=== PATIENT | female | born 1985 | race Caucasian/White ===

== ENCOUNTER 2019-11-27 17:12 | Observation (INO) ==
--- NOTE | 2019-11-27 17:31 | Emergency Department Note ---
ED Provider Note NAME: SILVA MOORE AGE: 34 SEX: F ARRIVES VIA: Walk-In INFORMANT: Patient, ED PROVIDER(S): Chaitanya Longoria DO CHIEF COMPLAINT: Patient presents the ER for epigastric abdominal pain which started yesterday morning. And now radiated to the right lower quadrant which has been constant and described as a cramping throbbing abdominal pain. She denies any nausea or vomiting. She does admit to crampy abdominal pain. Denies any dysuria, urgency or frequency. Last menstrual period was 3 weeks ago. She has had decreased oral intake as she notes it does upset her stomach slightly. No other exacerbating or remitting factors. Does have a previous history of C- section. She also has a past medical history of migraines. PMH migraines. Csection. IMPRESSION: Acute appendicitis MEDICAL DECISION MAKING: Patient is a 34-year-old female who presents the ER for periumbilical abdominal pain which started yesterday and radiated to her right lower quadrant. She was evaluated by her PCP and had a CT abdomen pelvis performed as an outpatient which showed questionable acute appendicitis and was referred in. Upon review of the CT report and [facility] system showed an appendix 9 to 10 mm and dilated but there is no significant surrounding stranding. On exam patient is acutely tender in the right lower quadrant. No previous abdominal surgeries. IV was established blood work was obtained showed no significant leukocytosis or anemia. BMP with mild hypokalemia. LFTs bilirubin lipase was unremarkable. UA was negative. was negative. Patient was given IV fluids while in the ER. Discussed with general surgery following my evaluation and they evaluated her at bedside and took her to the OR for appendectomy. Triage Nursing notes reviewed and agree them. Prior medical records reviewed Vital Signs: reviewed and remarkable for no significant abnormalities Differential diagnosis: Differential diagnoses includes but is not limited to gastritis, peptic ulcer disease, GERD, gallbladder disease, pancreatitis, small bowel obstruction, acute coronary syndrome, pericarditis, ischemic bowel, irritable bowel disease, irritable bowel syndrome, appendicitis, diverticulitis, malignancy, hernia, urinary tract infection, torsion, /ectopic (if female), perforation, trauma, infectious. ER treatment provided: See above Diagnostics interpreted by me: ECG: none Cardiac Monitoring: Sinus rhythm rate 80. Laboratory studies: See below Imaging studies: CT in [facility] system shows a dilated appendix 9 to 10 mm with no surrounding stranding suggesting acute appendicitis. Consultation(s): D/w Dr. Mcneal patient was taken to the OR for acute appendicitis. HPI: Patient presents the ER for epigastric abdominal pain which started yesterday morning. Pain now radiates to the right lower quadrant. She denies any nausea or vomiting. She does admit to crampy abdominal pain. Denies any dysuria, urgency or frequency. Last menstrual period was 3 weeks ago. She has had decreased oral intake as she notes it does upset her stomach slightly. No other exacerbating or remitting factors. Does have a previous history of C- section. She also has a past medical history of migraines. No other ex acerbating or remitting factors. ROS: See above HPI for pertinent positives & negatives. A total of 10 systems reviewed and were otherwise negative. PAST MEDICAL HISTORY:Migraines PAST SURGICAL HISTORY:No abdominal surgeries FAMILY HISTORY:See Below SOCIAL HISTORY:See Below HOME MEDICATIONS:See Below ALLERGIES:See Below VITALS:See Below PHYSICAL EXAMINATION: GENERAL: Sitting up in bed, alert, well appearing, well nourished, no distress, non-toxic EYE EXAM: normal conjunctiva. OROPHARYNX: no exudate, no erythema, lips, buccal mucosa, and tongue normal and mucous membranes are moist NECK: supple, no nuchal rigidity, no adenopathy, non-tender LUNGS: Clear to auscultation. Normal chest wall mechanics HEART: no murmurs, S1 normal and S2 normal ABDOMEN: abdomen soft, tender to palpation in the right lower quadrant, normo- active bowel sounds, no masses, no rebound or guarding. UPPER EXTREMITIES: upper extremities are grossly normal. LOWER EXTREMITIES: No pitting edema. NEURO EXAM: Normal sensorium, cranial nerves II-XII grossly intact, normal speech, no gross weakness of arms, no gross weakness of legs. ED COURSE: Procedures: none Critical Care: None Impression & Plan Acute appendicitis, Acute hypokalemia, Abdominal pain Past Med/Surg History Medical History (Updated 11/27/19 @ 20:41 by Chaitanya Longoria DO) Migraines Surgical History (Updated 11/27/19 @ 19:00 by Dorcas Iyer MD) History of section History of wisdom tooth extraction Family History Other No pertinent family history Social History Preferred Language: Danish Feels Safe at Home: Yes Smoking Status: Never smoker Do You Dip or Chew Tobacco: No ; Hx Alcohol Use: No Hx Substance Use: No Results & Data Vital Signs Vital Signs - 24 hr 11/27/19 17:16 11/27/19 17:49 11/27/19 18:51 Temperature 36.8 C Temperature Source Oral Pulse Rate 82 80 Pulse Rhythm Regular Pulse Strength Normal Respiratory Rate 18 20 Respiratory Effort / Characteristics Non-Labored Spontaneous Respiratory Depth Normal Respiratory Pattern Regular Blood Pressure 135/84 125/66 Blood Pressure Mean 101 Blood Pressure Position Sitting Pulse Oximetry 100 98 99 Oxygen Delivery Method Room Air Room Air Room Air Sepsis Recent Fever Within 48 Hours No Sepsis New/Unexplained Change in Mental Status No Sepsis Action Taken by Nursing No Action Required Laboratory Data Result diagrams: 11/27/19 Unknown 11/27/19 Unknown Lab Results 11/27/19 11/27/19 11/27/19 Range/Units 18:15 18:15 Unknown WBC 7.38 (4.8-10.8) K/uL RBC 4.61 (4.2-5.4) M/uL Hgb 13.4 (12.0-16.0) g/dL Hct 40.1 (37-47) % MCV 87.0 (80-100) fL MCH 29.1 (25-34) pg MCHC 33.4 (32-36) g/dL RDW Std Deviation 40.9 (36.4-46.3) fL RDW Coeff of Trevor 12.9 (11.5-14.5) % Plt Count 347 (130-400) K/uL MPV 10.6 H (7.4-10.4) fL Immature Gran % (Auto) 0.1 % Neut % (Auto) 52.6 % Lymph % (Auto) 41.1 % [place] % (Auto) 5.6 % Eos % (Auto) 0.5 % Baso % (Auto) 0.1 % Immature Gran # (Auto) 0.01 (0.00-0.02) K/uL Neut # (Auto) 3.88 (1.4-6.5) K/uL Lymph # (Auto) 3.03 (1.2-3.4) K/uL [place] # (Auto) 0.41 (0.11-0.59) K/uL Eos # (Auto) 0.04 (0-0.5) K/uL Baso # (Auto) 0.01 (0-0.2) K/uL Sodium (136-145) mmol/L Potassium (3.5-5.1) mmol/L Chloride (98-107) mmol/L Carbon Dioxide (21-32) mmol/L Anion Gap (3-11) BUN (7-18) mg/dl Creatinine (0.6-1.2) mg/dl Est Cr Clr Drug Dosing ml/min Est GFR ( Amer) Est GFR (Non-Af Amer) BUN/Creatinine Ratio (10-20) Glucose (70-99) mg/dl Calcium (8.5-10.1) mg/dl Total Bilirubin (0.2-1) mg/dl AST (15-37) U/L ALT (12-78) U/L Alkaline Phosphatase (45-117) U/L Total Protein (6.4-8.2) gm/dl Albumin (3.4-5.0) gm/dl Globulin (2.5-4.0) gm/dl Albumin/Globulin Ratio (0.9-2) Lipase (73-393) U/L Urine Color Yellow Urine Appearance Clear (Clear) Urine pH 5.0 (4.5-7.5) Ur Specific [place] > 1.045 H (1.000-1.030) Urine Protein Trace H (Negative) Urine Glucose (UA) Negative (Negative) Urine Ketones Negative (Negative) Urine Blood Trace H (Negative) Urine Nitrite Negative (Negative) Urine Bilirubin Negative (Negative) Urine Urobilinogen Negative (Negative) Ur Leukocyte Esterase Negative (Negative) Urine RBC 0-4 (0-4) /hpf Urine WBC 0-5 (0-5) /hpf Ur Epithelial Cells 0-5 (0-5) /lpf Urine Bacteria Negative (Negative) Urine Test Negative (Negative) 11/27/19 Range/Units Unknown WBC (4.8-10.8) K/uL RBC (4.2-5.4) M/uL Hgb (12.0-16.0) g/dL Hct (37-47) % MCV (80-100) fL MCH (25-34) pg MCHC (32-36) g/dL RDW Std Deviation (36.4-46.3) fL RDW Coeff of Trevor (11.5-14.5) % Plt Count (130-400) K/uL MPV (7.4-10.4) fL Immature Gran % (Auto) % Neut % (Auto) % Lymph % (Auto) % [place] % (Auto) % Eos % (Auto) % Baso % (Auto) % Immature Gran # (Auto) (0.00-0.02) K/uL Neut # (Auto) (1.4-6.5) K/uL Lymph # (Auto) (1.2-3.4) K/uL [place] # (Auto) (0.11-0.59) K/uL Eos # (Auto) (0-0.5) K/uL Baso # (Auto) (0-0.2) K/uL Sodium 135 L (136-145) mmol/L Potassium 3.1 L (3.5-5.1) mmol/L Chloride 105 (98-107) mmol/L Carbon Dioxide 24 (21-32) mmol/L Anion Gap 6.0 (3-11) BUN 7 (7-18) mg/dl Creatinine 0.86 (0.6-1.2) mg/dl Est Cr Clr Drug Dosing 65.6 ml/min Est GFR ( Amer) 101.4 Est GFR (Non-Af Amer) 87.5 BUN/Creatinine Ratio 8.4 L (10-20) Glucose 86 (70-99) mg/dl Calcium 9.1 (8.5-10.1) mg/dl Total Bilirubin 0.8 (0.2-1) mg/dl AST 10 L (15-37) U/L ALT 17 (12-78) U/L Alkaline Phosphatase 41 L (45-117) U/L Total Protein 7.8 (6.4-8.2) gm/dl Albumin 3.8 (3.4-5.0) gm/dl Globulin 4.0 (2.5-4.0) gm/dl Albumin/Globulin Ratio 1.0 (0.9-2) Lipase 134 (73-393) U/L Urine Color Urine Appearance (Clear) Urine pH (4.5-7.5) Ur Specific [place] (1.000-1.030) Urine Protein (Negative) Urine Glucose (UA) (Negative) Urine Ketones (Negative) Urine Blood (Negative) Urine Nitrite (Negative) Urine Bilirubin (Negative) Urine Urobilinogen (Negative) Ur Leukocyte Esterase (Negative) Urine RBC (0-4) /hpf Urine WBC (0-5) /hpf Ur Epithelial Cells (0-5) /lpf Urine Bacteria (Negative) Urine Test (Negative) Administered Medications Discontinued Medications Bupivacaine HCl/Epinephrine Bitart (Sensorcaine/Epinephrine 0.5% Mpf 1:200,000) Confirm Administered Dose 20 ml .ROUTE .STK-MED ONE Stop: 11/27/19 18:12 Last Admin: 11/27/19 20:13 Dose: 20 ml Documented by: [id number] Clindamycin Phosphate (Cleocin) Confirm Administered Dose 900 mg .ROUTE .STK-MED ONE Stop: 11/27/19 19:47 Last Admin: 11/27/19 19:45 Dose: 900 mg Documented by: [id number] Discharge Plan Visit Data *Final* Discharge Date/Time: 11/27/19 18:51 Chief Complaint: Abdominal Pain Stated Complaint: ABD PAIN, POSSIBLE APPENDICITIS ED Provider: Chaitanya Longoria Discharge Problem: Acute appendicitis, Acute hypokalemia, Abdominal pain Patient Disposition: Admitted As Inpatient Discharge Instructions Interventions: ED Discharge Assessment Last Done: 11/27/19 18:51 Discharge Problem: Acute appendicitis Qualifiers: Acute appendicitis type: unspecified acute appendicitis type Qualified Code(s): K35.80 - Unspecified acute appendicitis Abdominal pain Qualifiers: Abdominal location: unspecified location Qualified Code(s): R10.9 - Unspecified abdominal pain
[2019-11-27 17:56] LABS: Basophils # (auto) 0.01 K/uL (0-0.2); Basophils % (auto) 0.1 %; Eosinophils # (auto) 0.04 K/uL (0-0.5); Eosinophils % (auto) 0.5 %; Hematocrit (blood only) 40.1 % (37-47); Hemoglobin 13.4 g/dL (12.0-16.0); Immature Granulocytes # (auto) 0.01 K/uL (0.00-0.02); Immature Granulocytes % (auto) 0.1 %; Lymphocytes # (auto) 3.03 K/uL (1.2-3.4); Lymphocytes % (auto) 41.1 %; Mean Corpuscular Hemoglobin 29.1 pg (25-34); Mean Corpuscular Hgb Conc 33.4 g/dL (32-36); Mean Platelet Volume 10.6 fL (7.4-10.4); Monocytes # (auto) 0.41 K/uL (0.11-0.59); Monocytes % (auto) 5.6 %; Neutrophils # (auto) 3.88 K/uL (1.4-6.5); Neutrophils % (auto) 52.6 %; Platelet Count 347 K/uL (130-400); RDW Coefficient of Variation 12.9 % (11.5-14.5); RDW Standard Deviation 40.9 fL (36.4-46.3); Red Blood Count 4.61 M/uL (4.2-5.4); White Blood Count 7.38 K/uL (4.8-10.8)
[2019-11-27] MEDS ORDERED: ONDANSETRON INJ 2 MG/ML 2 ML VIAL ONE (18:00)
[2019-11-27] MEDS ORDERED: ROCURONIUM BROMIDE 10 MG/ML 5 ML VIAL ONE (18:00)
[2019-11-27] MEDS ORDERED: fentaNYL citrate 100 MCG/2 ML VIAL ONE ×2 (18:00→19:45)
[2019-11-27] MEDS ORDERED: PROPOFOL IV EMULSION 10 MG/ML 20 ML VIAL IV ONE (18:00)
[2019-11-27] MEDS ORDERED: LIDOCAINE HCL 2% 2 ML VIAL/AMP(20MG/ML) INFIL ONE (18:00)
[2019-11-27] MEDS ORDERED: MIDAZOLAM HCL 1 MG/ML 2ML VIAL ONE (18:00)
--- NOTE | 2019-11-27 18:04 | Anesthesiology Consultation ---
Date of Service November 27, 2019 Assessment & Plan (1) Encounter for pre-operative examination: Chart Review Chart Review: Acceptable Risk for Surgery and Patient NOT seen in Pre Admission Testing Consults Requested none ASA [id number] Proposed Anesthesia Anesthesia Type: General Risk / Benefits Reviewed With: PT / POA / Parent / Guardian, Accepts Plan and Informed Consent Obtained History Surgery Operation Date: 11/27/19 18:30 Proposed Procedures p Laparoscopic Appendectomy - Stewart Mcneal DO Height/Weight Height: 5 ft Weight: 53.5 kg Allergies Allergy/AdvReac Type Severity Reaction Status Date / Time cephalexin AdvReac Severe hives and Unverified 11/21/19 15:45 itching sumatriptan [From Imitrex] AdvReac Intermediate vomiting/made Unverified 11/21/19 15:45 migraines worse Medications Home Medications Medication Instructions Recorded Confirmed Last Taken inulin [Fiber Gummies] 0 g PO HS 11/21/19 11/27/19 11/20/19 levonorgestrel-ethinyl estrad 1 tab PO QAM 11/21/19 11/27/19 11/21/19 07:00 [Sronyx] pediatric multivitamin [Gummi Bear 2 tab PO HS 11/21/19 11/27/19 11/20/19 Multivitamin] NPO Date Last Intake of Fluids: 11/27/19 Time Last Intake of Fluids: 16:00 Date Last Intake of Solids: 11/27/19 Time Last Intake of Solids: 12:00 Past Medical History Medical History (Updated 11/27/19 @ 18:24 by Stewart Mcneal DO) Migraines Exercise / Class Metabolic Activity II 4-5 Yardwork/Stairs/Walk up hill Negative for chest pain or shortness of breath. Past Family History Family History Other No pertinent family history Past Surgical History Surgical History (Updated 11/27/19 @ 19:00 by Dorcas Iyer MD) History of section History of wisdom tooth extraction Past Anesthesia History No Hx of Anesthesia Complications History of PONV No Hx of PONV and No Hx of Motion Sickness Social History Smoking Status: Never smoker Do You Dip or Chew Tobacco: No Hx Alcohol Use: No Hx Substance Use: No Review of Systems Denies n/v Positive for headache in back of head for last few days. Physical Exam Vital Signs Last Vital Signs Temp 36.8 C 11/27/19 17:16 Pulse 80 11/27/19 18:51 Resp 20 11/27/19 18:51 BP 125/66 11/27/19 18:51 Pulse Ox 99 11/27/19 18:51 Constitutional not obese ENMT Mouth: no TMJ abnormality and oral opening not small Thyromental Distance: > or= 3.5 Finger Breadths Mallampati Class: II Neck normal visual inspection; neck extension not limited Respiratory normal respiratory effort Auscultation: lungs clear to auscultation bilaterally Cardiovascular Rate/Rhythm: regular rate and regular rhythm Heart Sounds: no murmur Neurologic moves all extremities Psychiatric Orientation: alert and oriented x 3 Testing Laboratory Results 11/27/19 Unknown 11/27/19 Unknown 11/27/19 18:15 Urine Test Pending Urinary test negative
[2019-11-27] MEDS ORDERED: BUPIVACAINE/EPINEPHRINE 0.5% MPF 1:200,000 10 ML VIAL ONE (18:11)
[2019-11-27 18:12] LABS: Albumin Level 3.8 gm/dl (3.4-5.0); BUN Creatinine Ratio 8.4 (10-20); Calcium 9.1 mg/dl (8.5-10.1); Creatinine Clr Calc Pharmacy 65.6 ml/min; Est GFR (African American) 101.4; Est GFR (Non-African American) 87.5; Potassium 3.1 mmol/L (3.5-5.1)
[2019-11-27 18:15] LABS: Bilirubin,Total 0.8 mg/dl (0.2-1); Total Protein 7.8 gm/dl (6.4-8.2)
--- NOTE | 2019-11-27 18:25 | History & Physical Report ---
Date of Service November 27, 2019 Assessment & Plan (1) Acute appendicitis: clinically and radiographically c/w acute appendicitis. discused options/risks ( bleeding/infection/abcess/injury to another organ/dvt/pe/mi/cva etc...). questions answered. will proceed with laparoscopic/possible open appendectomy brynn pt agreeable. History of Present Illness Primary Care Provider: Kyler King MD 34 year old female who began to have mid abdominal discomfort yesterday which progressed to the RLQ today. Was seen as an out-pt at a [facility] facility and CT revealed dilated appendix with inflammation c/w appendicitis. Allergies Allergy/AdvReac Type Severity Reaction Status Date / Time cephalexin AdvReac Severe hives and Unverified 11/21/19 15:45 itching sumatriptan [From Imitrex] AdvReac Intermediate vomiting/made Unverified 11/21/19 15:45 migraines worse Home Medications Home Medications Medication Instructions Recorded Confirmed Type inulin [Fiber Gummies] 4 g PO HS 11/21/19 11/21/19 History levonorgestrel-ethinyl estrad 1 tab PO QAM 11/21/19 11/21/19 History [Sronyx] pediatric multivitamin [Gummi Bear 2 tab PO HS 11/21/19 11/21/19 History Multivitamin] Past Med/Surg History Medical History Migraines Surgical History No pertinent past surgical history Family History Other No pertinent family history Social History Preferred Language: Sami Feels Safe at Home: Yes Smoking Status: Never smoker Review of Systems All systems reviewed & are unremarkable except as noted in HPI & below Physical Exam Constitutional: WD/WN, vitals as above no acute distress and not ill appearing Eyes: PERRL, conjunctivae normal, anicteric sclerae EOM intact bilaterally ENMT: external ear and nose normal, oropharynx normal Ears: no hearing impairment Neck: trachea midline, no thyromegaly Respiratory: normal respiratory effort; no respiratory distress and does not use accessory muscles Cardiovascular: Rate/Rhythm: regular rate and regular rhythm Gastrointestinal (Abdomen): soft. +RLQ ttp at [facility]. +Rovsing. Skin: no rashes, warm and dry Psychiatric: Orientation: alert, oriented x 3 and cooperative Results & Data Vital Signs (Past 12 Hours) Vital Signs Temp Pulse Resp BP Pulse Ox 11/27/19 17:49 98 11/27/19 17:16 36.8 C 82 18 135/84 100
[2019-11-27 18:59] LABS: Pregnancy Test, Urine Negative (Negative)
[2019-11-27] MEDS ORDERED: HYDROmorphone INJ 1 MG/ML SYRINGE IV PRN ×2 (19:06→21:38)
[2019-11-27] MEDS ORDERED: ATROPINE SULFATE 0.1 MG/ML 10ML SYR IV PRN (19:06)
[2019-11-27] MEDS ORDERED: ONDANSETRON INJ 2 MG/ML 2 ML VIAL IV PRN ×2 (19:06→21:38)
[2019-11-27] MEDS ORDERED: fentaNYL citrate 100 MCG/2 ML VIAL IV PRN (19:06)
[2019-11-27] MEDS ORDERED: PROMETHAZINE HCL 12.5 MG in SODIUM CHLORIDE 0.9% 50 ML IV PRN (19:06)
[2019-11-27] MEDS ORDERED: ePHEDrine sulfate 50 MG/ML AMP IV PRN (19:06)
[2019-11-27 19:07] LABS: Appearance Urine Clear (Clear); Bilirubin Urine Negative (Negative); Blood Urine Trace (Negative); Color Urine Yellow; Glucose Urine UA Negative (Negative); Ketones Urine Negative (Negative); Leukocyte Esterase Urine Negative (Negative); Nitrite Urine Negative (Negative); Protein Urine Trace (Negative); Urobilinogen Urine Negative (Negative)
[2019-11-27] MEDS ORDERED: DEXAMETHASONE SOD INJ 4 MG/ML VIAL ONE (19:27)
[2019-11-27] MEDS ORDERED: SUCCINYLCHOLINE 100MG/5ML SYR ONE (19:27)
[2019-11-27 19:34] LABS: Specific Gravity Urine > 1.045 (1.000-1.030)
[2019-11-27] MEDS ORDERED: CLINDAMYCIN PHOS 300 MG/2 ML VIAL ONE (19:46)
[2019-11-27 19:53] LABS: Bacteria Urine Negative (Negative); Epithelial Cell Urine 0-5 /lpf (0-5); RBC Urine 0-4 /hpf (0-4); WBC Urine 0-5 /hpf (0-5)
[2019-11-27] MEDS ORDERED: KETOROLAC 30 MG/ML VIAL ONE (19:57)
[2019-11-27] MEDS ORDERED: GLYCOPYRROLATE 0.2 MG/ML VIAL ONE (20:03)
[2019-11-27] MEDS ORDERED: NEOSTIGMINE METHYLSULFATE 5 MG/5 ML SYR ONE (20:03)
--- NOTE | 2019-11-27 20:22 | Operative Report ---
PG Post Operative Report Pre & Post Diagnosis Operation Date: 11/27/19 18:30 Pre-Op Diagnosis: acute appendicitis Post-Op Diagnosis: acute appendicitis;adhesions I identified the patient and participated in the time-out.: Yes Procedure laparoscopic appendectomy; enterolysis Operation Date: 11/27/19 18:30 <No data on this case meets the specified criteria> Surgeon Stewart Mcneal, Sales And Merchandising Associate n/a Estimated Blood Loss 5 Findings Consistent with Post-Op Diagnosis Specimens appendix Description of Procedure After informed consent was obtained the patient was taken to the operating room and placed in supine position. After successful intubation a Lopez catheter was placed and the left arm was tucked. A Lopez catheter was inserted sterilely. I began by making a periumbilical incision with an 11 blade scalpel and carried this down through the soft tissue using electrocautery. The anterior rectus fascia was opened using electrocautery and 2 #0 Vicryl stay sutures were placed. The peritoneum was elevated using hemostats and incised under direct vision using a Metzenbaum scissor. A finger sweep was performed. A 12 mm Ramos trocar was placed and the abdomen was insufflated to 18 mmHg. A laparoscope was inserted and the abdomen was examined in 360. A suprapubic 5 mm port and a left lower quadrant 12 mm port were placed under direct vision. The patient was air planed to the left as well as placed in a slight Trendelenburg position. We began by looking in the right lower quadrant. We were able to readily identify the appendix and it was grossly inflamed. It had not perforated. There is a small amount of purulent fluid in the right lower quadrant and the pelvis. We immediately irrigated and suctioned this out. I was able to use primarily blunt dissection to pull the appendix away from the right lower quadrant sidewall. I was then able to use a MAXIM brown cartridge stapler to transect both the mesentery of the appendix as well as the appendix itself at its base with the cecum. It was then placed into an Endo Catch bag and removed from the camera port site. We thoroughly irrigated the right lower quadrant as well as the pelvis. There was adequate hemostasis. I ran the small bowel backwards from the terminal ileum for about 6 feet all of which was normal. All the peritoneal surfaces were normal. Small/ large bowel, liver, stomach etc. all appeared grossly normal. While removing the appendix however there was a small bowel adhesion right at the umbilicus very close to the trocar site. At the end of the case prior to closing the fascia I I gently teased the small bowel off the fascia using blunt dissection and then pulled the small bowel loop out of the abdomen to inspect it to ensure there was no damage to it from the trocar or stay suture. Serosa was intact with no evidence of any injury. We did a final irrigation and then removed all the trochars and desufflated the abdomen. The fascia of the camera port as well as the left lower quadrant were closed using 0 Vicryl in [id number] fashion. Wounds were all irrigated and closed using 4-0 Monocryl. Marcaine was injected around them for postoperative analgesia and skin glue used as a dressing. The patient was awakened extubated and transferred to recovery in stable condition. I attest to the content of the Intraoperative Record and any orders documented therein. Any exceptions are noted below.
--- NOTE | 2019-11-27 20:52 | Anesthesiology Progress Note ---
Date of Service November 27, 2019 Anesthesia Post Procedure Vital Signs Vital Signs: Temp Pulse Resp BP Pulse Ox 11/27/19 18:51 80 20 125/66 99 11/27/19 17:49 98 11/27/19 17:16 36.8 C 82 18 135/84 100 Transfer of Care Handoff Completed per policy Notes Mental Status: alert / awake / arousable and participated in evaluation Patient Amnestic to Procedure: Yes Nausea / Vomiting: adequately controlled Pain: adequately controlled Airway Patency, RR, SpO2: stable & adequate BP & HR: stable & adequate Hydration State: stable & adequate Anesthetic Complications: no major complications apparent and Pt Satisfied with anesthetic care
[2019-11-27] MEDS ORDERED: ACETAMINOPHEN 1,000 MG/100 ML VIAL IV PRN (21:38)
[2019-11-27] MEDS ORDERED: OXYCODONE HCL IR 5 MG TAB (IMMEDIATE RELEASE) PO PRN (21:38)
[2019-11-27] MEDS ORDERED: HYDROmorphone INJ 0.5 MG/0.5 ML SYR IV PRN (21:38)
[2019-11-27] MEDS ORDERED: IBUPROFEN 600 MG TAB PO PRN (21:38)
[2019-11-27] MEDS: SODIUM CHLORIDE 0.9% 1000ML 1,000 ML IV SCH (22:28)
[2019-11-27] MEDS: OXYCODONE HCL IR 5 MG TAB (IMMEDIATE RELEASE) PO PRN ×2 (22:28→23:11)
[2019-11-28] MEDS: CLINDAMYCIN 600 MG in DEXTROSE 5% 50 ML IV SCH ×2 (03:55→11:40)
[2019-11-28] MEDS ORDERED: CLINDAMYCIN PHOS 900 MG/6 ML VIAL IV SCH (06:00)
[2019-11-28] MEDS: SODIUM CHLORIDE 0.9% 1000ML 1,000 ML IV SCH (06:14)
--- NOTE | 2019-11-28 08:20 | Anesthesiology Progress Note ---
Date of Service November 28, 2019 Anesthesia Post Procedure Vital Signs Vital Signs: Temp Pulse Pulse Pulse Resp BP BP 11/28/19 07:23 36.9 C 74 16 93/59 L 11/28/19 04:45 36.6 C 69 16 99/64 L 11/28/19 00:32 36.9 C 81 16 97/62 L 11/27/19 23:20 36.6 C 84 18 117/79 11/27/19 22:33 36.6 C 90 16 117/81 11/27/19 22:05 36.6 C 72 16 112/76 11/27/19 21:45 36.8 C 71 16 114/77 11/27/19 21:10 36.8 C 92 H 20 122/75 11/27/19 21:00 36.8 C 83 20 110/75 11/27/19 20:50 98 H 22 113/81 11/27/19 20:40 110 H 21 94/69 L 11/27/19 20:30 36.4 C L 119 H 21 87/63 L 11/27/19 18:51 80 20 125/66 11/27/19 17:49 11/27/19 17:16 36.8 C 82 18 135/84 Pulse Ox 11/28/19 07:23 98 11/28/19 04:45 98 11/28/19 00:32 97 11/27/19 23:20 98 11/27/19 22:33 98 11/27/19 22:05 98 11/27/19 21:45 100 11/27/19 21:10 100 11/27/19 21:00 100 11/27/19 20:50 100 11/27/19 20:40 100 11/27/19 20:30 100 11/27/19 18:51 99 11/27/19 17:49 98 11/27/19 17:16 100 Pain Intensity Abdomen: Pain Intensity: 4 Head: Pain Intensity: 5 Notes Mental Status: alert / awake / arousable and participated in evaluation Patient Amnestic to Procedure: Yes Nausea / Vomiting: adequately controlled Pain: adequately controlled Airway Patency, RR, SpO2: stable & adequate BP & HR: stable & adequate Hydration State: stable & adequate Anesthetic Complications: no major complications apparent and Pt Satisfied with anesthetic care
[2019-11-28] MEDS ORDERED: BUTALBITAL/ACETAMIN/CAFFEINE TAB PO ONE (11:30)
--- NOTE | 2019-11-28 11:30 | Surgery Progress Note ---
Date of Service November 28, 2019 Assessment & Plan (1) Acute appendicitis: pod 1 doing as expected will try some fiorcet for GARRISON prior to d/c ok for d/c instructions given. Subjective feeling ok other than persistent headache. tolerating liquids. not needing pain meds. Physical Exam Physical Exam: alert. nad abd: soft. expected incisional tenderness. Results & Data Vital Signs (Past 12 Hours) Vital Signs Temp Pulse Resp BP Pulse Ox 11/28/19 07:23 36.9 C 74 16 93/59 L 98 11/28/19 04:45 36.6 C 69 16 99/64 L 98 11/28/19 00:32 36.9 C 81 16 97/62 L 97 PG Care Time/CCT Total # of Minutes Spent Total Time Spent with Patient: Total time spent is greater than 50% in coordination of care (as documented) at patient's floor/unit and/or counseling patient: Coding Level of Care Code None Diagnoses Acute appendicitis K35.80 Acute appendicitis type: unspecified acute appendicitis type (1) Acute appendicitis Acute appendicitis type: unspecified acute appendicitis type Qualified Code(s): K35.80 - Unspecified acute appendicitis
--- NOTE | 2019-12-02 11:19 | Discharge Summary ---
Date of Service December 02, 2019 Admission HPI Per Admitting Provider 34 year old female who began to have mid abdominal discomfort yesterday which progressed to the RLQ today. Was seen as an out-pt at a [facility] facility and CT revealed dilated appendix with inflammation c/w appendicitis. Principal Diagnosis acute appendicitis Discharge Exam awake/alert Gastrointestinal (Abdomen) Inspection/Auscultation: + abdominal surgical incision (c/d/i with dermabond) Percussion/Palpation: + abdomen tender (some expected noemí-incisional tenderness) and abdomen soft Discharge Data Allergies Allergy/AdvReac Type Severity Reaction Status Date / Time cephalexin AdvReac Severe hives and Unverified 11/21/19 15:45 itching sumatriptan [From Imitrex] AdvReac Intermediate vomiting/made Unverified 11/21/19 15:45 migraines worse Consultations 11/27/19 17:47 ED Decision to Admit Stat Procedures Performed Operation Date: 11/27/19 18:30 Actual Procedures p Laparoscopic Appendectomy - Stewart Mcneal, Hospital Course (1) Acute appendicitis: This is a 34y F who developed abdominal pain starting on 3/11 who underwent an outpatient CT scan at [facility] that revealed findings concerning for acute appendicitis. Once it was read she was instructed to come to the ED for evaluation. On 3/12 the patient showed up to the [facility] ED and surgery was consulted. Patient agreeable to surgical intervention. On 312 the patient went to the OR with Dr. Mcneal for a laparoscopic appendectomy. The patient tolerated the procedure well, see op note for full details. Post operatively the patient's diet was advanced as tolerated, she was voiding without issues, pain controlled with prn meds, and incisions intact. On POD#1 the patient was given fioricet for a headache and later that day was deemed stable for discharged to home. She was instructed to follow up in clinic within 2 weeks for a post op check. Total Time Total Time Spent Total Time Spent (In Minutes): 15 Discharge Plan Discharge Items Patient Disposition: Home - Self-Care Reason For Visit: APPENDICITIS Discharge Diagnosis: laparoscopic appendectomy Activity: Per Instructions section Lifting: No more than 10 pounds Bathing Comment: may shower, no soaking in tubs Exercise/Sports: Wait until after follow-up appointment Driving/Machine Use: do not resume driving while taking narcotics for pain Non-emergency contact: Surgeon Call non-emergency contact if: you have any medication questions, your symptoms worsen, your pain is not controlled, your pain is unusual for you, you have a fever, your temperature is above 101.5, your wound has increased redness, your wound has increased drainage and your wound pain has increased Follow-up/Referrals: Stewart Mcneal, [Surgeon] - 12/10/19 9:00 am (Please call to schedule follow up in clinic within 1-[address] Mcneal ) Kyler King MD [Primary Care Provider] - Diet: Regular Addtl Attending Provider Instructions: Pending Studies at Discharge: Yes Studies:: surgical pathology Stand-Alone Forms: My [facility] [employer], Opioid Pain Management, Smoking Cessation Medications and DC Order Prescriptions: New hydrocodone-acetaminophen [[place]] 5-325 mg tablet 1 - 2 tab PO .q4-6h PRN (Reason: pain, for initial therapy, max 6 tabs per day) Qty: 15 RF: 0 Continued levonorgestrel-ethinyl estrad [Sronyx] 0.1-20 mg-mcg tablet 1 tab PO QAM RF: 0 pediatric multivitamin [[place]mi Bear Multivitamin] Tablet,Chewable 2 tab PO HS RF: 0 Fiber Gummies 2 gram Tablet,Chewable 0 g PO HS RF: 0 Discharge Orders: Discharge Order (Routine); Ordered 11/28/19 Ordered By: Kelly Dinh/Other Patient Handouts: Surgery Prevent DVT After Admission Data Admit Date/Time: 11/27/19 20:22 Attending Provider: Stewart Mcneal Admit Provider: Stewart Mcneal Primary Care Provider: Kyler King Other Providers: Stewart Mcneal Other Interventions: Discharge Summary Assessment (RN) Last Done: 11/28/19 13:55 DC Date/Time DO NOT enter until pt leaves facility: 11/28/19 14:51 Coding Level of Care Code D/C Day Management <30 mins Diagnoses Acute appendicitis K35.80 Acute appendicitis type: unspecified acute appendicitis type
== END 2019-11-28 14:51 | disposition home or self-care (01) ==
LOC: ED 17:12 → 3E 18:51 → OR 18:51